=== PATIENT | female | born 1985 ===

== ENCOUNTER 2018-08-13 10:34 | Inpatient (IN) | payer OTHER ==
[2018-08-13] MEDS ORDERED: Lactated Ringer's 1,000 ML IV ONE (19:01)
[2018-08-13 19:02] VITALS: BMI 38.7
[2018-08-13] MEDS ORDERED: Lactated Ringer's 1,000 ML IV SCH (19:15)
--- NOTE | 2018-08-13 19:47 | OBHP ---
Datetime: 08/13/2018 19:00 IP Adm Impression: Postterm, intrauterine ; No Active Labor; Intact Membranes IP Adm Impression Other: GBS (+) IP Admit Plan: Admit to unit; Initiate labor induction protocol Admit Comment, IP Provider: KADEN ID [id number] 33 y.o. , LMPunsure, MARIAH 08/12/18, EGA 40w 1d by sono 02/07/18 at 13w 3d for IOL. (+) AFM; den ies LOF, VB, Ctx. Passed mucous plug 2 days ago. 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 Denies STIs, abnormal Pap, myomata PMH: PCOS PSH: 2008, abdominoplasty. 2012, ORIF with plates, broken right ankle. NKDA Meds: PNV - daily; last took 3 days ago "I forgot" Soc Hx: denies tobacco, illicit drug or EtOH use. FOB involved; together x 8 years. Lives with an aunt. 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 Fam Hx: Mother and Father both alive; both approx 50+ y.o. Both with DM. No known fam h/o cancer P.E.: as above. Obese, in NAD. Awake, alert, oriented to time, person and place. 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 Assessment: 33 y.o. P0, 40w 1d for IOL. GBS (+). Category 1 tracing. D/W patient cervical ripening , augmentaiton and pain management options. Patient expressed an understanding; no questions offered. Patient is clinically stable. Plan: 1) Admit 2) NPO 3) Admission labs 4) Continuous EFM 5) Cytotec, bucally 6) Anticipate vaginal delivery Pelvic Type - PN: Adequate Extremities - PN: Normal Abdomen - PN: Normal Back - PN: Normal Breast - PN: Not Done Lungs - PN: Normal Heart - PN: Normal Thyroid - PN: Not Done Neurologic - PN: Normal HEENT - PN: Normal General - PN: Normal Weight - Estimated: 3632 Presentation-Admit: Vertex FHR - Baseline A Provider: 140 Contraction Comments Provider: infrequent Comments, ACOG Physical Exam: Skin: (+) hirsutism Abdomen: Gravid. Soft. Non tender in all quadrants. Fundal height 40 cm. Healed abdominoplasty sca r. Extremities: no calf tenderness or edema All other systems reviewed and are negative Gestation - Est Wks by US: 40w 1d IP Hx Assessment: The History has been Reviewed and is Current EGA AdmitDate IP: 40.1 Vital Signs Provider: Reviewed IP Indication for Induction: Postterm IP Chief Complaint: Scheduled induction of labor NICHD Variability Prov Fetus A: Moderate 6-25bpm NICHD Accel Fetus A IP Provider: 15X15 FHR Category Provider Fetus A: Category I NICHD Decel Fetus A IP Provider: None Dilatation, Provider: 3 Effacement, Provider: 40 Station, Provider: -2 Genitourinary Exam: Normal DTRs - PN: Not Done
[2018-08-13 19:52] LABS: BASO % 0.2 % (0.0-2.0); EOS % 0.3 % (0.0-4.0); LYMPH # 1.7 K/uL (1.0-4.3); LYMPH % 17.4 % (20.0-40.0); MEAN CELL VOLUME 85.5 fL (81.0-99.0); MEAN CORPUSCULAR HEMOGLOBIN 28.4 pg (27.0-31.0); MEAN CORPUSCULAR HGB CONC 33.3 g/dL (33.0-37.0); MEAN PLATELET VOLUME 9.7 fL (7.2-11.7); MONO # 0.5 K/uL (0.0-0.8); MONO % 4.8 % (0.0-10.0); NEUT # 7.6 K/uL (1.8-7.0); NEUT % 77.3 % (50.0-75.0); RBC 4.57 Mil/uL (3.80-5.20); RED CELL DISTRIBUTION WIDTH 14.2 % (11.5-14.5); WHITE BLOOD COUNT 9.8 K/uL (4.8-10.8)
[2018-08-13 20:08] LABS: ALBUMIN 3.7 g/dL (3.5-5.0); BLOOD UREA NITROGEN 8 mg/dL (7-17); CALCIUM 9.3 mg/dl (8.6-10.4); GFR NON-AFRICAN AMERICAN > 60
[2018-08-13 20:47] LABS: ALT/SGPT 18 U/L (9-52); AST/SGOT 37 U/L (14-36)
[2018-08-13 21:44] LABS: URINE BILIRUBIN NEGATIVE (NEGATIVE); URINE CLARITY Clear (Clear); URINE COLOR YELLOW (YELLOW); URINE GLUCOSE (UA) NEGATIVE (Normal)
[2018-08-13 21:45] LABS: URINE BLOOD NEGATIVE (NEGATIVE); URINE LEUKOCYTE ESTERASE NEGATIVE Leu/uL (Negative); URINE PROTEIN NEGATIVE (NEGATIVE)
[2018-08-13 21:46] LABS: SQUAMOUS EPITHIAL 5 /hpf (0-5)
[2018-08-13] MEDS ORDERED: Penicillin G Potassium 5 MU in Dextrose 5% In Water 50 ML IV ONE (22:28)
[2018-08-13] MEDS ORDERED: Penicillin G 5 Million Unit Vial IVPB ONE (22:41)
--- NOTE | 2018-08-13 22:43 | OBPN ---
Datetime: 08/13/2018 22:37 IP Progress Impression: Normal progression of labor IP Procedures: Sterile Vag Exam IP Progress Plan: Continue present management; Anesthesia consult; Anticipate Vaginal Delivery Contraction Comments Provider: irregular FHR - Baseline A Provider: 130 Gestation - Est Wks by US: 40w 1d Presentation-Admit: Vertex IP Progress Note Comment: Patient reports increasing intensity of contraactions; pain scale now 5/10 . Desiresepidural cervical exam as above. Assessment: 33 y.o. P0, 40 w 1d, progressing spontaneously. GBS positive. Category 1 tracing. BPs are wnl. Patient is clinically stable. Plan: 1) Epidural 2) Start penicillin 3) Consider cytotec pV 4) Anticpate vaginal delivery NICHD Accel Fetus A IP Provider: 15X15 FHR Category Provider Fetus A: Category I NICHD Variability Prov Fetus A: Moderate 6-25bpm Dilatation, Provider: 4 Effacement, Provider: 50 Station, Provider: -3 NICHD Decel Fetus A IP Provider: None Datetime: 08/13/2018 19:00 Weight - Estimated: 3632 Vital Signs Provider: Reviewed
[2018-08-13] MEDS ORDERED: Bupivacaine HCl/FentaNYL Cit 100 ML EPI ONE (23:23)
[2018-08-14] MEDS: Penicillin G Potassium 2.5 MU in Dextrose 5% In Water 50 ML IV SCH ×3 (02:30→10:16)
[2018-08-14] MEDS ORDERED: Lidocaine 2% MPF (5 ml) Inj ONE ×5 (02:47→11:17)
--- NOTE | 2018-08-14 05:52 | OBPN ---
Datetime: 08/14/2018 05:42 IP Progress Impression: Normal progression of labor IP Procedures: Sterile Vag Exam IP Progress Plan: Continue present management; Augmentation; Anticipate Vaginal Delivery Membranes, Provider: Bulging Amniotic Fluid Color, Provider: Blood-tinged Contraction Comments Provider: 2-5 FHR - Baseline A Provider: 135 Gestation - Est Wks by US: 40w 2d IP Progress Note Comment: Patient received in LDR#3, comfortable. Cervical exam as above. Assessment: 33 y.o. P0, 40w 2d IOL - S/P cytotec with adequate response. GBS (+) on penicillin. CA tegory 1 tracing. Patient is clincially stble. Plan: 1) Contiinue penicillin 2) Start pitocin 3) Anticipate vaginal delivery Vital Signs Provider: Reviewed; Within Normal Limits NICHD Accel Fetus A IP Provider: 15X15 FHR Category Provider Fetus A: Category I NICHD Variability Prov Fetus A: Moderate 6-25bpm Dilatation, Provider: 6 Effacement, Provider: 80 Station, Provider: -2 NICHD Decel Fetus A IP Provider: None
[2018-08-14] MEDS ORDERED: Oxytocin 30 UNIT in NS 500 ml 30 UNITS/500 ML BAG IV ONE ×2 (05:56→05:57)
[2018-08-14] MEDS ORDERED: Bupivacaine HCl/FentaNYL Cit 100 ML EPI ONE (06:35)
[2018-08-14] MEDS ORDERED: Oxytocin 10 Units/ml Inj ONE (10:56)
[2018-08-14] MEDS ORDERED: Benzocaine/Menthol 20%-0.5% Topical Spray (60 ml) TOP PRN (11:51)
[2018-08-14] MEDS ORDERED: Oxycodone/Acetaminophen 5/325 mg Tab PO PRN ×2 (11:51)
[2018-08-14] MEDS: Multiple Vitamins Tab PO SCH (17:33)
[2018-08-14 17:46] LABS: HEMOGLOBIN 11.6 g/dL (11.0-16.0); MEAN CELL VOLUME 85.1 fL (81.0-99.0); MEAN CORPUSCULAR HEMOGLOBIN 28.4 pg (27.0-31.0); MEAN CORPUSCULAR HGB CONC 33.3 g/dL (33.0-37.0); MEAN PLATELET VOLUME 9.6 fL (7.2-11.7); RBC 4.07 Mil/uL (3.80-5.20); RED CELL DISTRIBUTION WIDTH 13.5 % (11.5-14.5); WHITE BLOOD COUNT 20.2 K/uL (4.8-10.8)
--- NOTE | 2018-08-14 20:19 | OBDS ---
DELIVERY PERSONNEL Delivery Doctor: Katie Alicea MD Scrub Nurse: Marissa Odonnell Marine Chronometer Assembler: Haley Iqbal RN Anesthesiologist: Katie Collins MD MATERNAL INFORMATION Delivery Anesthesia: Epidural Medications in Delivery: pitocin Estimated Blood Loss (ml): 1500 Placenta Cultured: No Maternal Complications: None (Annotations: Data stored by CPN on behalf of user) RN Comments: to a live baby boy with 8/9 in direct OA position. Shoulder dystocia Mc Gruber and subrapubic pressure done. Provider Comments: Patient fully dilated and coached on pushing. Vaginal delivery of live male infant, initially direct OA, finally from the MILE position over humaira neum. "Turtle sign" was noted. Ramu maneuver implemented. Wood's corkscrew was performed first t o the left. When unsuccessful, attempt was made to deliver the posterior shouder. This proved unsucce ssful. Felix corkscrew then performed to the right. This, along with suprapubic pressure, resulted in the release of the left anterior shouder. Rest of body delivered without incident. Infant's mouth an d nose were bulb-suciotned on the perineum. Umbilical cord doubly clamped and cut. placed on w armer for further management by pediatrics team, Dr. Ahn was present. Segment of umbilcal cord obtained for cord pH (see below) Prior to delivery of placenta, significant gush of blood occurred. Placenta then delivered spontan eously; grossly intact, 3 vessel cord Intrauterine exploration was performed with evacuation of additional blood and clots. Uterus contr acted and firm, as pitocin infusion was running "open wide" (30 Units in 500 mL). Examination of cervix, vagina, perineum noted for 2nd degree pernieal laceration without extension . Uterine bleeding within normal limits. At this time, there was no need for additional uterotonics. Laceration repaired as above. Hemostasis assured. Patient and bonding; both in stable conditi on EBL 1,500 mL Infant's weight 9lb 2 oz 's 8/9 Cord pH 7.25; base XS -9.9 Weakness noted to 's upper left extremity. This was disclosed to the patient and FOB, using [employer]inter, ID [id number] (after patient had been cleaned and was sitting up in bed) LABOR SUMMARY EDC: 08/12/2018 00:00 No. Babies in Womb: 1 Attempted: No Labor Anesthesia: Epidural LABOR INFORMATION Complete Dilatation: 08/14/2018 09:10 Cervical Ripening Agents: Cytotec @ (Annotations: 25mcg placed intravaginally by DR ALICEA.) Oxytocin: Augmentation Group B Beta Strep: Positive Antibiotics # of Doses: 4 Antibiotics Time of Last Dose: 1030 Steroids Given: None Reason Steroids Not Administered: Not Applicable MEMBRANES Membranes Rupture Method: Spontaneous Rupture of Membranes: 08/14/2018 06:45 Length of Rupture (hrs): 3.80 Amniotic Fluid Color: Clear Amniotic Fluid Amount: Moderate Amniotic Fluid Odor: Normal STAGES OF LABOR Stage 2 hrs: 1 Stage 2 min: 23 Stage 3 hrs: 0 Stage 3 min: 17 VAGINAL DELIVERY Episiotomy: None Laceration Extension: Second Degree Laceration Type: Perineal Laceration Repair: Yes Laceration Repair Note: 2-0 and 3-0 chromic in routin fasihon Hemostasis assured Patient tolerated procedure well; in stable condition Initial Vag Sponge Count: 10 Final Vag Sponge Count: 20 Initial Vag Sharps Count: 0 Final Vag Sharps Count: 3 Sponge Count Correct: Yes; Vaginal Sweep Performed Sharps Count Correct: Yes Count Comment: Correct BABY A INFORMATION Infant Delivery Date/Time: 08/14/2018 10:33 Method of Delivery: Vaginal Born in Route : No : N/A Forceps: N/A Vacuum Extraction: N/A Shoulder Dystocia : Yes SHOULDER DYSTOCIA BABY A Delivery of Head: 08/14/2018 10:32 Infant Delivery Date/Time: 08/14/2018 10:33 Time Head to Delivery : 1.0 1st Intervention to Resolve: McRobert's Maneuver 2nd Intervention to Resolve: Suprapubic Pressure Verify NO Fundal Pressure: No Fundal Pressure Applied PRESENTATION/POSITION BABY A Presentation: Cephalic Cephalic Presentation: Vertex Vertex Position: Right Occipital Anterior Breech Presentation: N/A PLACENTA INFORMATION BABY A Placenta Delivery Time : 08/14/2018 10:50 Placenta Method of Delivery: Spontaneous Placenta Status: Delivered SCORES BABY A Heart Rate 1 min: >100 bpm Resp Effort 1 min: Good Cry Reflex Irritability 1 min: Grimace Muscle Tone 1 min: Active Motion Color 1 min: Body [place], Extremities Blue SCORE 1 MIN: 8 Heart Rate 5 min: >100 bpm Resp Effort 5 min: Good Cry Reflex Irritability 5 min: Grimace Muscle Tone 5 min: Active Motion Color 5 min: Completely [place] SCORE 5 MIN: 9 INFANT INFORMATION BABY A Gestational Age at Delivery: 40.2 Gestational Status: Term Outcome : Liveborn Infant Condition : Stable Infant Sex: Male IDENTIFICATION/MEDS BABY A ID Band Number: [id number] ID Band Location: Left Leg; Left Arm Sensor Applied: Yes Sensor Number: [id number] Sensor Location : Cord Clamp WEIGHT/LENGTH BABY A Infant Birthweight (gms): 4130 Weight (lb): 9 Infant Weight (oz): 2 Length Inches: 21.00 Infant Length cms: 53.3 CORD INFORMATION BABY A No. Cord Vessels: 3 Nuchal Cord : N/A Cord Blood Taken: Yes Suction: Mouth; Nose ASSESSMENT BABY A Complications: None Physical Findings at Delivery: Within Normal Limits Infant Respirations: Appears Normal Electric Locomotive Firer/Fireman/ALS Called : No Care By: Dr. Ahn Transferred To: Remains with Mother
[2018-08-15 06:23] LABS: MEAN CELL VOLUME 85.6 fL (81.0-99.0); MEAN CORPUSCULAR HEMOGLOBIN 28.3 pg (27.0-31.0); MEAN PLATELET VOLUME 9.1 fL (7.2-11.7); RBC 3.39 Mil/uL (3.80-5.20); RED CELL DISTRIBUTION WIDTH 13.7 % (11.5-14.5); WHITE BLOOD COUNT 13.9 K/uL (4.8-10.8)
[2018-08-15 06:28] LABS: HEMOGLOBIN 9.6 g/dL (11.0-16.0)
[2018-08-15] MEDS: Multiple Vitamins Tab PO SCH (09:33)
--- NOTE | 2018-08-15 10:23 | OBPPN ---
Datetime: 08/15/2018 10:20 PP Pain Prov: Within normal limits PP Nausea Prov: Denies PP Flatus Prov: Yes PP Impression Prov: Normal progression PP Plan Prov: Continue present management PP Progress Note Prov: pt was examined at bed side, pain under contol,no n/v, tolerating deit,voidin g,min lochia, fl+ ppd#1 s/p nvd cont pnv cnt pain ma encouahe ambulai Datetime: 08/15/2018 09:47 PP BM Prov: No PP Breasts Prov: Not Done PP Heart Prov: Normal PP Lungs Prov: Normal PP Abdomen/Uterus Prov: Normal PP Lochia Prov: Normal PP Vulva/Perineum Prov: Not Done PP CVA Tenderness Prov: Normal PP Extremities Prov: Normal PP C/S Incision Prov: Not Applicable PP Progress Prov: Abnormal PP Comments Phys Exam Prov: General: NAD, Comfortable Cardio: RRR, No murmur Lungs: CTABL, No rales/ronchi/wheeze Abdomen: Soft, Nontender, Uterine height 1fb below umbilicus LE: Minimal Edema BL, 2+ Distal pulses Vital Signs Provider PP: Reviewed; Within Normal Limits
[2018-08-16] MEDS: Multiple Vitamins Tab PO SCH (09:23)
[2018-08-16 17:26] VITALS: BP 133/81; O2SAT 99
[2018-08-16 22:41] VITALS: PULSE 102; RESP 20; TEMP 98.2
== END 2018-08-16 18:40 | disposition home or self-care (01) | DRG 373 ==
LOC: C.4D 18:21 → C.4M 08-14 14:02
PROVIDERS: ADMIT Obstetrics & Gynecology; ATTEND Obstetrics & Gynecology
PROC: 0KQM0ZZ Repair Perineum Muscle, Open Approach (ICD-10-PCS; principal; 2018-08-14)
PROC: 10E0XZZ Delivery of Products of Conception, External Approach (ICD-10-PCS; 2018-08-14)
DX: O66.0 Obstructed labor due to shoulder dystocia (principal); O70.1 Second degree perineal laceration during delivery; O99.824 Streptococcus B carrier state complicating childbirth; Z37.0 Single live birth; O48.0 Post-term pregnancy; Z3A.40 40 weeks gestation of pregnancy